=== PATIENT | female | born 1995 | race Caucasian/White ===

== ENCOUNTER 2017-08-16 10:42 | Emergency (ER) | payer BC ==
[2017-08-16] MEDS ORDERED: TYLENOL 325 MG PO ONE (11:38)
--- NOTE | 2017-08-16 11:42 | ERPHSYRPT ---
- History of Present Illness Time Seen by Provider: 08/16/17 11:30 Source: patient, family (mother) Patient Subjective Stated Complaint: pt reports being dx with the flu yeterday being told that if she wasn't better today to come to ed-pt reports she is not feeling better-body aches all over-unsure of fever-sinus pressure with no drainage-diarrhea x 2 Triage Nursing Assessment: pt pink warm and [id number] anxious-resp easy and nonlabored with no difficulty breathing-no cough noted during triage Physician History: CC: flu Hx: 21 y/o patient of JACK Bah. She has rhinorrhea, cough, fever, chills, myalgias. She tested positive for flu A yesterday at office and started tamiflu. Was told to come to ER if not better by today. No new or worsened symptoms. She had prior depo provera and has amenorrhea. Timing/Duration: day(s) (2) Cough Quality/Degree: moderate, dry cough Allergies/Adverse Reactions: No Known Drug Allergies Allergy (Unverified 08/16/17 11:10) Home Medications: Oseltamivir Phosphate 75 mg PO DAILY 08/16/17 [History] Hx Tetanus, Diphtheria Vaccination/Date Given: Yes Hx Influenza Vaccination/Date Given: Yes Hx Pneumococcal Vaccination/Date Given: No Immunizations Up to Date: Yes - Review of Systems Constitutional: Fever, Chills, Malaise Eyes: No Symptoms Ears, Nose, & Throat: Nose Congestion, Throat Pain Respiratory: Cough Abdominal/Gastrointestinal: Nausea, Diarrhea Genitourinary Symptoms: No Dysuria Musculoskeletal: Myalgias Skin: No Rash Neurological: Headache All Other Systems: Reviewed and Negative - Past Medical History Pertinent Past Medical History: No - Past Surgical History Past Surgical History: Yes Other Surgical History: facial - Social History Smoking Status: Never smoker Exposure to second hand smoke: No Drug Use: none Patient Lives Alone: No - Female History Hx Last Menstrual Period: last month Hx Now: No - Nursing Vital Signs Nursing Vital Signs: Initial Vital Signs Temperature 99.2 F 08/16/17 11:06 Pulse Rate 88 08/16/17 11:06 Respiratory Rate 18 08/16/17 11:06 Blood Pressure 121/86 08/16/17 11:06 O2 Sat by Pulse Oximetry 98 08/16/17 11:06 Pain Scale Pain Intensity 8 - Physical Exam General Appearance: alert Eye Exam: PERRL/EOMI Ears, Nose, Throat Exam: normal ENT inspection, moist mucous membranes Neck Exam: normal inspection, non-tender, supple, No meningismus Respiratory Exam: normal breath sounds, lungs clear, No respiratory distress Cardiovascular Exam: regular rate/rhythm Gastrointestinal/Abdomen Exam: soft, No tenderness, No distention Back Exam: normal inspection Extremity Exam: normal inspection, normal range of motion Neurologic Exam: alert, oriented x 3, cooperative, 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, sensation nml, No motor deficits Skin Exam: warm, dry, No rash SpO2 Interpretation: normal SpO2: 98 Oxygen Delivery: Room Air - Course Nursing assessment & vital signs reviewed: Yes Ordered Tests: Active Orders 24 hr Category Date Time Status Clean Catch Urine Specimen STAT Care 08/16/17 11:38 Active HCG,QUALITATIVE URINE Stat Lab 08/16/17 12:00 Completed UA W/RFX UR CULTURE Stat Lab 08/16/17 11:39 Completed Medication Summary Discontinued Medications Generic Name Dose Route Start Last Admin Trade Name Imelda PRN Reason Stop Dose Admin Acetaminophen 650 mg 08/16/17 11:38 08/16/17 11:45 Tylenol 325 Mg PO 08/16/17 11:39 650 mg STAT ONE Administration Acetaminophen Confirm 08/16/17 11:43 Tylenol 325 Mg Administered 08/16/17 11:44 Dose 650 mg .ROUTE .[facility] ONE Lab/Rad Data: Laboratory Results 08/16/17 08/16/17 Range/Units 12:00 11:39 Ur Collection Type CLEAN CATCH Urine Color YELLOW (YELLOW) Urine Appearance CLEAR (CLEAR) Urine pH 5.0 (5-6) Ur Specific [place] 1.015 (1.005-1.025) Urine Protein NEGATIVE (Negative) Urine Ketones NEGATIVE (NEGATIVE) Urine Blood NEGATIVE (0-5) Kervin/ul Urine Nitrite NEGATIVE (NEGATIVE) Urine Bilirubin NEGATIVE (NEGATIVE) Urine Urobilinogen NORMAL (0-1) mg/dL Ur Leukocyte Esterase NEGATIVE (NEGATIVE) Urine Culture Reflexed NO (NO) Urine Glucose NEGATIVE (NEGATIVE) mg/dL Urine HCG, Qual NEGATIVE (Negative) Specimen Received 08-16-17 1200 - Progress Progress Note: 08/16/17 11:42 Lungs clear. She declines cxr. Will check ua, APAP, encourage fluids and symptom Rx. 08/16/17 12:25 UA negative. HCG negative. Symptoms Rx encouraged. Rx albuterol MDI. RT gave spacer. Counseled pt/family regarding: lab results, diagnosis, need for follow-up - Departure Time of Disposition: 12:26 Departure Disposition: Home Clinical Impression: Influenza A Condition: Stable Critical Care Time: No Referrals: KYLE ANDREWS [Primary Care Provider] - Instructions: Cough, Adult (DC), Flu, Adult (DC) Additional Instructions: UPPER RESPIRATORY INFECTIONS 1. The signs and symptoms of a cold may last up to 10 days. These illnesses are due to viruses which are not treatable with antibiotics. 2. The following suggestions can aid in recovery and to minimize symptoms: A. Increase fluid intake. B. Acetaminophen or Ibuprofen as directed. C. Avoid smoking environments as this will increase the risk of developing pneumonia. D. For children, may use a cool mist vaporizer in the child's room. 3. Contact your Family Physician if you note: A. Persistent fever >103 for more than 3 days B. Breathing difficulty C. Productive cough of yellow/green sputum D. Illness greater than 7 days E. Persistent vomiting F. Stiff neck Rx albuterol MDI. Prescriptions: Albuterol Sulfate [Albuterol Sulfate Hfa] 2 puff IH Q4-6HPRN PRN #1 [email or web address] PRN Reason: cough or wheeze
[2017-08-16] MEDS ORDERED: TYLENOL 325 MG ONE (11:43)
[2017-08-16 12:08] LABS: Appearance CLEAR (CLEAR); Bilirubin NEGATIVE (NEGATIVE); Blood NEGATIVE Ery/ul (0-5); Glucose NEGATIVE (NEGATIVE); Ketones NEGATIVE (NEGATIVE); Leukocyte Esterase NEGATIVE (NEGATIVE); Nitrite NEGATIVE (NEGATIVE); Protein,Urine Dip NEGATIVE (Negative); Specific Gravity 1.015 (1.005-1.025); Urobilinogen NORMAL mg/dL (0-1)
[2017-08-16 12:36] VITALS: BP 118/64; PULSE 94; O2SAT 97
== END 2017-08-16 12:35 | disposition home or self-care (01) ==
LOC: ED 10:42
DX: J09.X2 Influenza due to identified novel influenza A virus with other respiratory manifestations (principal)
CPT/HCPCS: 81002; 84703; 99283; A9270-GY

== ENCOUNTER 2021-02-11 09:47 | Observation (INO) | payer OTHER ==
[2021-02-11 11:34] VITALS: BP 121/73; PULSE 84; O2SAT 98
== END 2021-02-11 12:55 | disposition home or self-care (01) ==
LOC: OB 09:47
PROVIDERS: ADMIT Obstetrics & Gynecology; ATTEND Obstetrics & Gynecology
DX: Z34.83 Encounter for supervision of other normal pregnancy, third trimester (principal); Z3A.36 36 weeks gestation of pregnancy
CPT/HCPCS: 87086; G0378

== ENCOUNTER 2021-02-18 12:11 | Inpatient (IN) | payer OTHER ==
[2021-02-18] MEDS ORDERED: Zofran 4 MG/2 ML VIAL IV PRN (16:17)
[2021-02-18] MEDS ORDERED: Ephedrine Sulfate 50 MG/ML IV PRN (16:17)
[2021-02-18] MEDS ORDERED: XYLOCAINE 1% HCL 20 ML MDV IJ PRN (16:17)
[2021-02-18] MEDS ORDERED: TYLENOL EXTRA STRENGTH 500 MG PO PRN (16:17)
[2021-02-18] MEDS ORDERED: Lactated Ringers 1,000 ML IV ONE (16:17)
[2021-02-18] MEDS ORDERED: OB EPIDURAL NAROPIN/SUFENTANIL IN NACL EPIDURAL PRN (16:17)
--- NOTE | 2021-02-18 16:26 | XRAY ---
Indication: Vaginal bleeding. Evaluate placenta. Ultrasound biophysical profile study performed. Comparison: None Single intrauterine in cephalic presentation with heart rates 125 BPM. Fundal placenta without abnormal retroplacental fluid. Four-quadrant PELON is 5.3 cm, largest pocket 2.6 cm. 2 points given for amniotic fluid volume. 0 points given for breathing, movements, and tone. Impression: Total biophysical profile score is 2 out of 8.
[2021-02-18 16:56] LABS: Hematocrit 35.4 % (35-47); Hemoglobin 11.2 gm/dl (12.0-16.0); Mean Cell Volume 87.8 fl (78-100); Mean Corpuscular Hemoglobin 27.8 pg (26-32); Mean Corpuscular Hgb Concent. 31.6 g/dl (32-36); Mean Platelet Volume 9.7 fl (7.5-11.0); Platelet Count 220 K/mm3 (150-450); Red Blood Count 4.03 M/mm3 (4.1-5.4); Red Cell Distribution Width 12.6 % (11.5-14.0); White Blood Count 19.4 K/mm3 (4.0-10.5)
[2021-02-18 16:59] LABS: INR 0.99 (0.8-3.0); PROTIME 11.7 SECONDS (9.4-12.5)
[2021-02-18 17:02] LABS: PTT 25.7 SECONDS (25.1-36.5)
[2021-02-18 17:22] LABS: BAND 11 % (0.0-2.0); Lymphocytes 4 % (24-44); Monocyte 4 % (0.0-12.0); Neutrophils 81 % (36.0-66.0); Total Cells Counted 100
[2021-02-18 17:23] LABS: ANISOCYTOSIS 1+; Macrocytosis 1+; Platelet Estimate NORMAL (NORMAL)
[2021-02-18 17:24] LABS: Absolute Neutrophil Ct (ANC) 17.81 (1.4-6.9)
[2021-02-18 17:43] LABS: ABO TYPING B; Antibody Screen NEGATIVE (NEGATIVE); RH TYPING POSITIVE
[2021-02-18] MEDS: Lactated Ringers 1,000 ML IV SCH (17:49)
[2021-02-18] MEDS: PITOCIN 30 UNITS/ LR 500 ML 30 UNITS/500 ML IV.SOLN. IV SCH (18:07)
[2021-02-18] MEDS ORDERED: KEFZOL 1 GM ONE (19:07)
[2021-02-18] MEDS ORDERED: XYLOCAINE 2%/Epi 1:200000 20ML VIAL MPF ONE (19:07)
[2021-02-18] MEDS ORDERED: SUBLIMAZE 250 MCG/5 ML ONE (19:13)
[2021-02-18] MEDS ORDERED: Pitocin 10 UNITS/ML ONE ×2 (19:17→19:18)
[2021-02-18] MEDS ORDERED: Astramorph-Pf 5 MG/10 ML ONE (19:17)
[2021-02-18] MEDS ORDERED: NORCO 5/325 MG PO PRN (19:25)
[2021-02-18] MEDS ORDERED: CORTISONE 1% CREAM TP PRN (19:25)
[2021-02-18] MEDS ORDERED: Dulcolax 10 MG SUPP PR PRN (19:25)
[2021-02-18] MEDS ORDERED: LANSINOH 40 GM TOP PRN (19:25)
[2021-02-18] MEDS ORDERED: Anucort-HC SUPPOSITORY PR PRN (19:25)
[2021-02-18] MEDS ORDERED: Ambien 10 MG PO PRN (19:25)
[2021-02-18] MEDS ORDERED: TUCKS TP PRN (19:25)
[2021-02-18] MEDS ORDERED: Mylicon 80MG PO PRN (19:25)
[2021-02-18] MEDS ORDERED: TRANEXAMIC ACID 1000 MG/10 ML ONE (19:26)
[2021-02-18] MEDS ORDERED: Sodium Chloride 0.9% 100 ML BAG 100 ML ONE (19:26)
[2021-02-18] MEDS ORDERED: Marcaine 0.5%/Epinephrine 10 ML ONE (19:35)
[2021-02-18] MEDS ORDERED: Naropin 0.5% 30 ML VIAL ONE (19:35)
[2021-02-18] MEDS ORDERED: EPINEPHRINE 1MG/ML AMP ONE (19:35)
[2021-02-18] MEDS ORDERED: DEMEROL 50 MG ONE (19:48)
[2021-02-18] MEDS ORDERED: HOLD NARCOTIC ANALGESICS AND SEDATIVES X24 HR MC PRN (20:00)
[2021-02-18] MEDS ORDERED: Narcan 0.4 MG/ML IV PRN (20:00)
[2021-02-18] MEDS ORDERED: PERCOCET TABLET 5/325MG PO PRN (20:00)
[2021-02-18] MEDS ORDERED: Nubain 10 MG/ML IV PRN (20:00)
[2021-02-18] MEDS ORDERED: MORPHINE SULFATE 2 MG INJ IV PRN (20:00)
[2021-02-18] MEDS ORDERED: BENADRYL 50 MG/ML IV PRN (20:00)
[2021-02-18] MEDS ORDERED: DEMEROL 50 MG IV PRN (20:00)
[2021-02-18] MEDS ORDERED: CLARITIN 10 MG PO PRN (20:00)
[2021-02-18] MEDS ORDERED: Zofran 4 MG/2 ML VIAL ONE (20:01)
[2021-02-18] MEDS: Dextrose 5%-Lr IV Solution 1000 ML 1,000 ML IV SCH (20:45)
[2021-02-18] MEDS ORDERED: Dermoplast Spray TP PRN (21:00)
--- NOTE | 2021-02-18 22:18 | XRAY ---
Indication: Rule out retained surgical foreign body/instrument following section. Comparison: None KUB nonacute and nonobstructed. No radiopaque foreign body. Osseous structures intact. Comment: Preliminary interpretation made by [facility]. No critical discrepancy.
[2021-02-18] MEDS ORDERED: Adacel Vial IM ONE (23:28)
[2021-02-19] MEDS: Dextrose 5%-Lr IV Solution 1000 ML 1,000 ML IV SCH ×2 (04:24→22:36)
[2021-02-19 06:14] LABS: Hemoglobin 9.1 gm/dl (12.0-16.0); Mean Cell Volume 88.1 fl (78-100); Mean Corpuscular Hemoglobin 27.7 pg (26-32); Mean Corpuscular Hgb Concent. 31.4 g/dl (32-36); Mean Platelet Volume 9.7 fl (7.5-11.0); Platelet Count 202 K/mm3 (150-450); Red Blood Count 3.29 M/mm3 (4.1-5.4); Red Cell Distribution Width 12.7 % (11.5-14.0); White Blood Count 14.8 K/mm3 (4.0-10.5)
[2021-02-19 07:31] LABS: Lymphocytes 16 % (24-44); Monocyte 5 % (0.0-12.0); Neutrophils 79 % (36.0-66.0); Total Cells Counted 100
[2021-02-19 07:32] LABS: Platelet Estimate NORMAL (NORMAL)
[2021-02-19] MEDS: Colace 100 MG PO SCH ×2 (08:58→21:44)
[2021-02-19] MEDS: FERREX 150 PO SCH (08:58)
--- NOTE | 2021-02-19 10:51 | PCM.NOTE ---
Date and Time: 02/19/21 1049 Subjective Assessment: POD 1 SP CSECTION PT RESTING IN BED AND DOING WELL. VSS AFEBRILE ABD; SOFT INCISION C/D/INTACT UTERUS; FIRM LOCHIA; MILD HGB; 9 A/P SP CSECTION POD 1 ANTICIPATE DISCHARGE TOMORROW OBJECTIVE DATA Vital Signs: Vital Signs - 24 hr Temp Pulse Resp BP BP BP Pulse Ox 02/19/21 09:05 98.2 F 94 H 18 103/63 99 02/19/21 08:00 98.2 F 18 99 02/19/21 06:56 98 02/19/21 05:57 98 02/19/21 05:17 98 02/19/21 04:00 95 02/19/21 02:58 95 02/19/21 02:00 98.8 F 100 H 111/61 97 02/19/21 01:00 98 02/19/21 00:00 98 02/18/21 23:30 110 H 18 95/54 98 02/18/21 23:00 98 02/18/21 22:30 114 H 18 95/50 98 02/18/21 22:00 98 02/18/21 21:15 117 H 103/55 100 02/18/21 21:00 98.8 F 123 H 103/58 100 02/18/21 18:45 88 18 110/74 97 02/18/21 18:30 112 H 18 101/65 96 02/18/21 18:15 124 H 22 105/65 02/18/21 18:00 117 H 20 101/58 02/18/21 16:40 112 H 20 02/18/21 16:19 99.3 F 18 112/70 100 02/18/21 14:28 112 H 20 118/74 02/18/21 12:43 112 H 20 118/74 Pain Assessment - Last Documented Pain Intensity [Anterior] 0 Pain Intensity 2 Intake and Output: Intake & Output 02/16/21 02/17/21 02/18/21 02/19/21 11:59 11:59 11:59 11:59 Intake Total 6092 Output Total 4250 Balance 1842 Weight 72.575 kg Lab Results: Lab Results-Last 24 Hours 02/18/21 02/18/21 02/18/21 Range/Units 16:40 16:40 16:40 WBC 19.4 H (4.0-10.5) K/mm3 RBC 4.03 L (4.1-5.4) M/mm3 Hgb 11.2 L (12.0-16.0) gm/dl Hct 35.4 (35-47) % MCV 87.8 (78-100) fl MCH 27.8 (26-32) pg MCHC 31.6 L (32-36) g/dl RDW 12.6 (11.5-14.0) % Plt Count 220 (150-450) K/mm3 MPV 9.7 (7.5-11.0) fl Absolute Granulocytes 17.81 H (1.4-6.9) Segmented Neutrophils 81 H (36.0-66.0) % Band Neutrophils 11 H (0.0-2.0) % Lymphocytes (Manual) 4 L (24-44) % Monocytes (Manual) 4 (0.0-12.0) % Platelet Estimate NORMAL (NORMAL) RBC Morphology ABNORMAL Anisocytosis 1+ Macrocytosis 1+ PT 11.7 (9.4-12.5) SECONDS INR 0.99 (0.8-3.0) APTT 25.7 (25.1-36.5) SECONDS ABO Group B Rh Factor POSITIVE Antibody Screen NEGATIVE (NEGATIVE) 02/19/21 Range/Units 05:25 WBC 14.8 H (4.0-10.5) K/mm3 RBC 3.29 L (4.1-5.4) M/mm3 Hgb 9.1 L (12.0-16.0) gm/dl Hct 29.0 L (35-47) % MCV 88.1 (78-100) fl MCH 27.7 (26-32) pg MCHC 31.4 L (32-36) g/dl RDW 12.7 (11.5-14.0) % Plt Count 202 (150-450) K/mm3 MPV 9.7 (7.5-11.0) fl Absolute Granulocytes (1.4-6.9) Segmented Neutrophils 79 H (36.0-66.0) % Band Neutrophils (0.0-2.0) % Lymphocytes (Manual) 16 L (24-44) % Monocytes (Manual) 5 (0.0-12.0) % Platelet Estimate NORMAL (NORMAL) RBC Morphology NORMAL Anisocytosis Macrocytosis PT (9.4-12.5) SECONDS INR (0.8-3.0) APTT (25.1-36.5) SECONDS ABO Group Rh Factor Antibody Screen (NEGATIVE) Radiology Exams: Radiology Procedures Category Date Time Status KUB Routine Exams 02/18/21 19:53 Completed OB BIOPHYSICAL W/O NON STRESS [US] Stat Exams 02/18/21 15:56 Completed Assessment/Plan (1) delivery delivered Current Visit: Yes Status: Acute Code(s): O82 - ENCOUNTER FOR DELIVERY WITHOUT INDICATION
[2021-02-19] MEDS: MOTRIN 400 MG PO PRN ×2 (15:13→21:44)
[2021-02-19] MEDS: Lactated Ringers 1,000 ML IV SCH (22:36)
[2021-02-19] MEDS: PITOCIN 30 UNITS/ LR 500 ML 30 UNITS/500 ML IV.SOLN. IV SCH (22:36)
[2021-02-20] MEDS ORDERED: NORCO 5/325 MG PO PRN (02:41)
[2021-02-20] MEDS ORDERED: NORCO 5/325 MG ONE (02:42)
[2021-02-20] MEDS: MOTRIN 400 MG PO PRN ×2 (06:15→14:40)
[2021-02-20] MEDS: FERREX 150 PO SCH (08:42)
[2021-02-20] MEDS: Colace 100 MG PO SCH (08:42)
--- NOTE | 2021-02-20 10:12 | PCM.NOTE ---
Date and Time: 02/20/21 1009 Subjective Assessment: POD 2 SP CSECTION PT RESTING IN BED AND DONG WELL AMBULATING AND TOLERATING DIET. DOES CO COLD SORES SHES DEVELOPED AND STATES HAVING HAD PREVIOUSLY. VSS AFEBRILE ABD; SOFT INCISION C/D/INTACT UTERUS; FIRM LOCHIA; MILD A/P SP CSECTION POD 2 HERPES LABIALIS DC HOME TODAY FU OFFICE 2 WKS WILL GIVE FIRST DOSE OF VALACYCLOVIR 2000MG AT THIS TIME OBJECTIVE DATA Vital Signs: Vital Signs - 24 hr Temp Pulse Resp BP Pulse Ox 02/20/21 08:00 97.8 F 68 18 119/57 02/20/21 02:00 97.5 F 71 18 113/74 97 02/19/21 20:00 98.2 F 80 19 111/67 98 02/19/21 17:00 98.4 F 102 H 18 106/61 98 02/19/21 16:00 98 02/19/21 15:00 98 02/19/21 14:00 98 02/19/21 13:00 99 02/19/21 12:00 99 02/19/21 11:00 99 Pain Assessment - Last Documented Pain Intensity [Anterior] 5 Pain Intensity 5 Pain Scale Used 0-10 Pain Scale Intake and Output: Intake & Output 02/17/21 02/18/21 02/19/21 02/20/21 11:59 11:59 11:59 11:59 Intake Total 6092 1460 Output Total 4950 2700 Balance 1142 -1240 Weight 72.575 kg Radiology Exams: Radiology Procedures Category Date Time Status KUB Routine Exams 02/18/21 19:53 Completed OB BIOPHYSICAL W/O NON STRESS [US] Stat Exams 02/18/21 15:56 Completed Assessment/Plan (1) delivery delivered Current Visit: Yes Status: Acute Code(s): O82 - ENCOUNTER FOR DELIVERY WITHOUT INDICATION (2) S/P repeat low transverse Current Visit: Yes Status: Acute Code(s): Z98.891 - HISTORY OF UTERINE SCAR FROM PREVIOUS SURGERY
--- NOTE | 2021-02-20 10:19 | PCM.DS ---
Discharge Summary Date of Admission: 02/18/21 16:00 Admitting Physician: JINA SHANE DO Consults: Consults on Case 02/18/21 19:27 Notify Physician ROUTINE Primary Care Provider: KYLE SMITH Allergies Allergies Penicillins Allergy (Mild, Verified 02/18/21 12:26) Itching Hospital Summary - Hospital Course Hospital Course: PT ADMITTED ON FEBRUARY 18 FOR SUSPECTED SROM AND BEING IN LABOR AND AFTER BEING IN LABOR WITH HX OF PREVIOUS CSECTION, PT DESIRES HOWEVER AFTER LABORING AND BECOMING 4CM PT WAS NOTED HAVING A PROLONGED BRADYCARDIA FOR WHICH SHE SUBSEQUENTLY UNDERWENT REPEAT CSECTION AND WAS DONE SO WITHOUT COMLPLICATION. 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 VALTREX STARTED AT THIS TIME AND WAS TOLD TO ABSTAIN FROM KISSING BABY. PTS INCISION C/D/INTACT WAS ADVISED TO FU IN 2 WKS FOR POST OP EVALUATION. ALL QUESTIONS ANSWERED TO HER SATISFACTION. PT GIVEN NORCO FOR PAIN MANAGMENT WELL RX FOR VALTREX GIVEN. - Vitals & Intake/Output Vital Signs: Vital Signs Temperature 97.8 F 02/20/21 08:00 Pulse Rate 68 02/20/21 08:00 Respiratory Rate 18 02/20/21 08:00 Blood Pressure 119/57 02/20/21 08:00 O2 Sat by Pulse Oximetry 97 02/20/21 02:00 Intake & Output: Intake & Output 02/17/21 02/18/21 02/19/21 02/20/21 11:59 11:59 11:59 11:59 Intake Total 6092 1460 Output Total 1800 2700 Balance 1142 -1240 Weight 72.575 kg - Lab Result Diagrams: 02/19/21 05:25 - Radiology Exams Ordered Rad Exams-Entire Visit: Radiology Procedures Category Date Time Status KUB Routine Exams 02/18/21 19:53 Completed OB BIOPHYSICAL W/O NON STRESS [US] Stat Exams 02/18/21 15:56 Completed - Procedures and Test Procedures and Tests throughout Hospitalization: Therapy Orders & Screens 02/18/21 19:00 Standby ROUTINE Comment: Diagnosis: labor Final Diagnosis/Problem List - Final Discharge Diagnosis/Problem (1) delivery delivered Current Visit: Yes Status: Acute Code(s): O82 - ENCOUNTER FOR DELIVERY WITHOUT INDICATION (2) S/P repeat low transverse Current Visit: Yes Status: Acute Code(s): Z98.891 - HISTORY OF UTERINE SCAR FROM PREVIOUS SURGERY - Discharge Disposition: Home, Self-Care Condition: Stable Prescriptions: New Hydrocodone/Acetaminophen [Hydrocodone-Acetamin 5-325 mg] 1 tab PO Q6HPRN PRN #30 tablet MDD 4 PRN Reason: Pain Valacyclovir HCl [Valacyclovir] 1,000 mg PO HS 1 Days #2 tablet No Action Vits W-Ca,Fe,FA(<1Mg) [] 1 each PO DAILY Follow up with: KYLE SMITH [Primary Care Provider] - JINA SHANE DO [ACTIVE STAFF] - 2 weeks (keep incision clean and dry no heavy lifting no intercourse for 6 wks)
[2021-02-20] MEDS ORDERED: NON-FORMULARY ITEM PO SCH (11:30)
[2021-02-20 14:56] VITALS: BP 112/63; PULSE 88; O2SAT 98
--- NOTE | 2021-02-21 09:50 | OP ---
SURGERY DATE/TIME: 02/18/20211858 PREOPERATIVE DIAGNOSIS: Intrauterine at 37 plus weeks in labor with previous section x1 for attempted with subsequent prolonged bradycardia. POSTOPERATIVE DIAGNOSIS: Intrauterine at 37 plus weeks in labor with previous section x1 for attempted with subsequent prolonged bradycardia. PROCEDURE: Repeat section, low flap transverse uterine incision, Pfannenstiel skin incision. SURGEON: Kalia Bansal D.O. CREW LEADER: Khushi Germain, surgical clinical reviewer. ANESTHESIA: Epidural. ESTIMATED BLOOD LOSS: 500 cc. COMPLICATIONS: None. INDICATIONS: The risks, benefits, indications and alternatives of the procedure were reviewed with the patient prior to procedure. The patient understood the risk of infection, bleeding, bowel injury, bladder injury, ureteral injury, uterine perforation, pelvic infection, thromboembolic disorder associated with the surgery however desires to have this surgery as a possible means to alleviate her current medical condition. DESCRIPTION OF PROCEDURE AND FINDINGS: At this point the patient is taken to the operating room where her epidural anesthesia was found to adequate. She was then prepared and draped in normal sterile fashion in the dorsal supine position with leftward tilt. A Pfannenstiel skin incision is made with a scalpel and carried through to the underlying layer of the fascia with Bovie. The fascia was then incised in the midline and the incision extended laterally with Greene scissors. The superior aspect of the fascial incision was then grasped Nikki clamps elevated and the underlying rectus muscles dissected off bluntly. Attention is then turned to the inferior aspect of this incision which in similar fashion was grasped, tented up with Nikki clamps and the rectus muscles dissected off bluntly. The rectus muscles were then at the midline and the peritoneum identified, tented up and entered sharply with Metzenbaum scissors. The peritoneal incision was then extended superiorly and inferiorly with good visualization of the bladder. The bladder blade was then inserted and the vesicouterine peritoneum identified, grasped with a pickup and entered sharply with Metzenbaum scissors. This incision was then extended laterally and bladder flap created medially. The bladder blade was then re-inserted and the lower uterine segment incised in transverse fashion with a scalpel. The uterine incision was then extended laterally with bandage scissors. The bladder blade was then removed and the infants head was delivered atraumatically. The nose and mouth were suctioned with bulb suction, the cord clamped and cut. The infant was then handed off to the awaiting nurses. The placenta was then removed from the uterus, exteriorized and cleared of all clots and debris. The uterine incision was repaired with 1-0 chromic in a running locked fashion. At this point hemostasis was obtained. From this point the uterus was then returned to the abdomen and the gutters were cleared of all clots and the peritoneal muscles were closed with 2-0 chromic suture. The fascia was re-approximated with 0 Vicryl in running fashion. The subcutaneous layer was closed with 3-0 Vicryl suture. The skin was closed with absorbable sree called INSORB. The patient tolerated the procedure well. Sponge, lap, needle and instrument counts were correct x2. The patient was then taken to the recovery room in stable condition. The patient delivered a live baby girl at 1915 hours. 's were 8 at 1 minute and 9 at 5 minutes and the delivery weight was 6 pounds 10 ounces.
[2021-02-22 08:29] LABS: HBsAg Screen Negative (Negative)
== END 2021-02-20 18:25 | disposition home or self-care (01) | DRG 788 ==
LOC: MED SURG 12:11 → OB 12:19 → MED SURG 16:00 → OBSVTOIN 16:00
PROVIDERS: ADMIT Obstetrics & Gynecology; ATTEND Obstetrics & Gynecology
PROC: 10D00Z1 Extraction of Products of Conception, Low, Open Approach (ICD-10-PCS; principal; 2021-02-18)
DX: O66.41 Failed attempted vaginal birth after previous cesarean delivery (principal); O76 Abnormality in fetal heart rate and rhythm complicating labor and delivery; Z3A.37 37 weeks gestation of pregnancy; Z37.0 Single live birth; B00.1 Herpesviral vesicular dermatitis
CPT/HCPCS: 36415; 59620; 62322; 64488; 74018; 76819; 76937; 76942; 85025; 85610; 85730; 86850; 86900; 86901; 87340; 90715; 94799; 99140; G0378; J0171; J0690; J2175; J2274; J2405; J2590; J2795; J3010; L0625; A9270-GY

== ENCOUNTER 2023-08-08 16:03 | Emergency (ER) | payer OTHER ==
--- NOTE | 2023-08-08 16:14 | ERPHSYRPT ---
- History of Present Illness Time Seen by Provider: 08/08/23 16:13 Historian: patient, family Exam Limitations: no limitations Physician History: This is a 27-year-old white female patient of nurse practitioner Niurka who presents to the emergency department with a few day history of lower abdominal cramping. Approximately 2 weeks ago, patient took a test and it was positive. This test was an [id number] test. Patient's last menstrual period was on 06/28/2023 per her report. Today, she had intermittent lower abdominal cramping with associated vaginal bleeding. Patient is allergic to penicillin. She takes no medications chronically. She has no chest pain and she denies shortness of breath. Timing/Duration: day(s), intermittent, other (Few days ago. Today, cramping in the lower abdomen is associated with vaginal bleeding) Quality: cramping Abdominal Pain Onset Location: suprapubic Pain Radiation: no radiation Severity of Pain-Max: mild Severity of Pain-Current: mild Modifying Factors: Improves With: nothing Associated Symptoms: other (Vaginal bleeding) Previous symptoms: no prior history, no recent treatment Allergies/Adverse Reactions: Penicillins Allergy (Mild, Verified 08/08/23 16:14) Itching Home Medications: No Reportable Medications [No Reported Medications] 08/08/23 [History] Hx Tetanus, Diphtheria Vaccination/Date Given: Yes Hx Influenza Vaccination/Date Given: Yes Hx Pneumococcal Vaccination/Date Given: No Travel Risk - International Travel Have you traveled outside of the country in past 3 weeks: No - Emerging Infectious Disease Are you exhibiting symptoms associated with any current EIDs: No - Review of Systems Constitutional: No Symptoms Eyes: No Symptoms Ears, Nose, & Throat: No Symptoms Respiratory: No Symptoms Cardiac: No Symptoms Abdominal/Gastrointestinal: Abdominal Pain (Pubic/pelvic cramping) Genitourinary Symptoms: Vaginal Bleeding Musculoskeletal: No Symptoms Skin: No Symptoms Neurological: No Symptoms Psychological: No Symptoms Endocrine: No Symptoms Hematologic/Lymphatic: No Symptoms Immunological/Allergic: No Symptoms All Other Systems: Reviewed and Negative - Past Medical History Pertinent Past Medical History: No - Past Surgical History Past Surgical History: Yes Other Surgical History: facial - Social History Smoking Status: Never smoker Exposure to second hand smoke: No Drug Use: none Patient Lives Alone: No - Nursing Vital Signs Nursing Vital Signs: Initial Vital Signs Pulse Rate 108 H 08/08/23 16:13 Respiratory Rate 20 08/08/23 16:13 Blood Pressure 131/75 08/08/23 16:13 O2 Sat by Pulse Oximetry 100 08/08/23 16:13 Pain Scale Pain Intensity 6 - Physical Exam General Appearance: no apparent distress, alert, anxiety Eye Exam: PERRL/EOMI, eyes nml inspection Ears, Nose, Throat Exam: normal ENT inspection, moist mucous membranes Neck Exam: normal inspection, non-tender, supple, full range of motion Respiratory Exam: normal breath sounds, lungs clear, No chest tenderness, No respiratory distress Cardiovascular Exam: regular rate/rhythm, normal heart sounds, normal peripheral pulses Gastrointestinal/Abdomen Exam: soft, normal bowel sounds, tenderness (Mild suprapubic tenderness), No guarding, No rebound Pelvic Exam: not done Rectal Exam: not done Back Exam: normal inspection, normal range of motion, No CVA tenderness, No vertebral tenderness Extremity Exam: normal inspection, normal range of motion, pelvis stable Neurologic Exam: alert, oriented x 3, cooperative, copper plater II-XII nml as tested, normal mood/affect, nml cerebellar function, nml station & gait, sensation nml Skin Exam: normal color, warm, dry Lymphatic Exam: No adenopathy SpO2 Interpretation: normal O2 Delivery: Room Air - Course Nursing assessment & vital signs reviewed: Yes Ordered Tests: Active Orders 24 hr Category Date Time Status IV Insertion STAT Care 08/08/23 16:34 Active OB <14 WKS 1ST GESTATION [US] Stat Exams 08/08/23 16:33 Completed AMYLASE Stat Lab 08/08/23 17:00 Results CBC W DIFF Stat Lab 08/08/23 17:00 Completed CMP Stat Lab 08/08/23 17:00 Results HCG QUALITATIVE, SERUM Stat Lab 08/08/23 17:00 Completed HCG, Quantitative (Inhouse) Stat Lab 08/08/23 17:00 Results LIPASE Stat Lab 08/08/23 17:00 Results UA W/RFX UR CULTURE Stat Lab 08/08/23 16:38 Completed Lab/Rad Data: Laboratory Result Diagrams 08/08/23 17:00 08/08/23 17:00 Laboratory Results 08/08/23 08/08/23 08/08/23 Range/Units 17:00 17:00 17:00 WBC 7.8 (4.0-10.5) x10^3/uL RBC 4.48 (4.1-5.4) x10^6/uL Hgb 13.1 (12.0-16.0) g/dL Hct 38.9 (35-47) % MCV 86.8 (78-100) fL MCH 29.2 (26-32) pg MCHC 33.7 (32-36) g/dL RDW 12.2 (11.5-14.0) % Plt Count 297 (150-450) x10^3/uL MPV 8.6 (7.5-11.0) fL Gran % 66.3 H (36.0-66.0) % Immature Gran % (Auto) 0.9 H (0.00-0.4) % Nucleat RBC Rel Count 0.0 (0.00-0.1) % Eos # (Auto) 0.05 (0-0.5) x10^3/uL Immature Gran # (Auto) 0.07 H (0.00-0.03) x10^3u/L Absolute Lymphs (auto) 1.94 (1.0-4.6) x10^3/uL Absolute Monos (auto) 0.52 (0.0-1.3) x10^3/uL Absolute Nucleated RBC 0.00 (0.00-0.01) x10^3u/L Lymphocytes % 25.0 (24.0-44.0) % Monocytes % 6.7 (0.0-12.0) % Eosinophils % 0.6 (0.00-5.0) % Basophils % 0.5 (0.0-0.4) % Absolute Granulocytes 5.15 (1.4-6.9) x10^3/uL Basophils # 0.04 (0-0.4) x10^3/uL Sodium 139 (135-145) mmol/L Potassium 4.1 (3.5-5.1) mmol/L Chloride 106 (98-107) mmol/L Carbon Dioxide 23 (22-30) mmol/L Anion Gap 13.9 (5-15) MEQ/L BUN 8 (7-17) mg/dL Creatinine 0.61 (0.52-1.04) mg/dL Estimated GFR 127.2 ML/MIN Glucose 84 (74-106) mg/dL Calcium 9.6 (8.4-10.2) mg/dL Total Bilirubin 0.30 (0.2-1.3) mg/dL AST 20 (14-36) U/L ALT 13 (0-35) U/L Alkaline Phosphatase 68 (38-126) U/L Serum Total Protein 7.8 (6.3-8.2) g/dL Albumin 4.5 (3.5-5.0) g/dL Amylase 90 (30-110) U/L Lipase 157 (23-300) U/L Serum HCG, Qual POSITIVE (NEGATIVE) Beta HCG, Quant Pending Urine Color (Yellow) Urine Appearance (Clear) Urine pH (4.6-8.0) Ur Specific Lynn (1.005-1.030) Urine Protein (Negative) Urine Glucose (UA) (Negative) mg/dL Urine Ketones (Negative) Urine Blood (Negative) Urine Nitrite (Negative) Urine Bilirubin (Negative) Urine Urobilinogen (0.2) mg/dL Ur Leukocyte Esterase (Negative) U Hyaline Cast (Auto) (0-2) /LPF Urine Microscopic RBC (0-5) /HPF Urine Microscopic WBC (0-5) /HPF Ur Epithelial Cells (None Seen) /HPF Urine Bacteria (None Seen) /HPF Urine Culture Reflexed (NO) 08/08/23 Range/Units 16:38 WBC (4.0-10.5) x10^3/uL RBC (4.1-5.4) x10^6/uL Hgb (12.0-16.0) g/dL Hct (35-47) % MCV (78-100) fL MCH (26-32) pg MCHC (32-36) g/dL RDW (11.5-14.0) % Plt Count (150-450) x10^3/uL MPV (7.5-11.0) fL Gran % (36.0-66.0) % Immature Gran % (Auto) (0.00-0.4) % Nucleat RBC Rel Count (0.00-0.1) % Eos # (Auto) (0-0.5) x10^3/uL Immature Gran # (Auto) (0.00-0.03) x10^3u/L Absolute Lymphs (auto) (1.0-4.6) x10^3/uL Absolute Monos (auto) (0.0-1.3) x10^3/uL Absolute Nucleated RBC (0.00-0.01) x10^3u/L Lymphocytes % (24.0-44.0) % Monocytes % (0.0-12.0) % Eosinophils % (0.00-5.0) % Basophils % (0.0-0.4) % Absolute Granulocytes (1.4-6.9) x10^3/uL Basophils # (0-0.4) x10^3/uL Sodium (135-145) mmol/L Potassium (3.5-5.1) mmol/L Chloride (98-107) mmol/L Carbon Dioxide (22-30) mmol/L Anion Gap (5-15) MEQ/L BUN (7-17) mg/dL Creatinine (0.52-1.04) mg/dL Estimated GFR ML/MIN Glucose (74-106) mg/dL Calcium (8.4-10.2) mg/dL Total Bilirubin (0.2-1.3) mg/dL AST (14-36) U/L ALT (0-35) U/L Alkaline Phosphatase (38-126) U/L Serum Total Protein (6.3-8.2) g/dL Albumin (3.5-5.0) g/dL Amylase (30-110) U/L Lipase (23-300) U/L Serum HCG, Qual (NEGATIVE) Beta HCG, Quant Urine Color Yellow (Yellow) Urine Appearance Clear (Clear) Urine pH 6.5 (4.6-8.0) Ur Specific Lynn <=1.005 (1.005-1.030) Urine Protein Negative (Negative) Urine Glucose (UA) Negative (Negative) mg/dL Urine Ketones Negative (Negative) Urine Blood Negative (Negative) Urine Nitrite Negative (Negative) Urine Bilirubin Negative (Negative) Urine Urobilinogen 0.2 (0.2) mg/dL Ur Leukocyte Esterase Negative (Negative) U Hyaline Cast (Auto) NONE SEEN (0-2) /LPF Urine Microscopic RBC 0-2 (0-5) /HPF Urine Microscopic WBC 0-2 (0-5) /HPF Ur Epithelial Cells None Seen (None Seen) /HPF Urine Bacteria None Seen (None Seen) /HPF Urine Culture Reflexed NO (NO) - Progress Progress Note: 08/08/23 16:55 This patient's medical issue is 1 of moderate complexity. The level of complexity and the workup performed is based on review of the patient's past medical history, review the patient's medication list, reviewed patient's drug allergy list, history present illness and physical findings on examination. The workup in this patient includes placement of an intravenous line, quantitative hCG, qualitative serum hCG, urinalysis, CBC, CMP, amylase, lipase and OB less than 14 weeks ultrasound. 08/08/23 17:02 [facility] OB less than 14 weeks [facility] reports that there is fluid in the body of the uterus and debris in the fundus. She reports no evidence for an ectopic . We will await the final radiology report. 08/08/23 17:12 08/08/23 17:17 The final ultrasound report was interpreted by the radiologist. I reviewed the impression. The impression states that there is a low-lying intrauterine cystic mass without pole/heart tones. Hypoechogenicity throughout remaining endometrial cavity. May represent blood products. Rule out spontaneous 08/08/23 17:18 I interpreted the patient's laboratory data results. The only significant finding is the serum qualitative test is positive. The quantitative level is pending. Patient's vital signs are stable. There is no active vaginal bleeding. Her hemoglobin is normal. There is no evidence of urinary tract infection or blood in her urine. 08/08/23 17:59 We have been waiting for the quantitative hCG. At approximately 1740, lab was notified and they stated that it would be 20 minutes before the result is back. They just called again stating that it would be approximately another 20 to 30 minutes. The quantitative hCG level does not have to be back before the patient is discharged. We will call the patient with the value if she would like to be discharged. Counseled pt/family regarding: lab results, diagnosis, need for follow-up, rad results Medical Desision Making - Independent Historian Additional History obtained from: Family - Diagnostic Testing Diagnostic test were ordered, analyzed, and reviewed by me: Yes Radiological Interpretation: Reviewed by me, Teleradiologist Report - Risk of complications Low Risk: Low risk of morbidity from additional dx testing or treatment - Departure Departure Disposition: Home Clinical Impression: Spontaneous miscarriage Condition: Stable Critical Care Time: No Referrals: FRANKLIN MALONEY, JACK [Primary Care Provider] - Follow up/PCP as directed Additional Instructions: Plenty of fluids. Call nurse practitioner Niurka's office tomorrow, 08/09/2023 in the morning to make arrangements for follow-up appointment and/or any further management/intervention they deem necessary. Continue all your medications as prescribed.
[2023-08-08 16:27] VITALS: TEMP 99.6
[2023-08-08 17:01] LABS: Appearance Clear (Clear); Bacteria None Seen /HPF (None Seen); Bilirubin Negative (Negative); Blood Negative (Negative); Epithelial Cells None Seen /HPF (None Seen); Glucose, Urine Negative (Negative); Hyaline Casts NONE SEEN /LPF (0-2); Ketones Negative (Negative); Leukocyte Esterase Negative (Negative); Nitrite Negative (Negative); Ph 6.5 (4.6-8.0); Protein,Urine Dip Negative (Negative); RBC 0-2 /HPF (0-5); Specific Gravity <=1.005 (1.005-1.030); Urobilinogen 0.2 mg/dL (0.2); WBC 0-2 /HPF (0-5)
[2023-08-08 17:06] LABS: Absolute Neutrophil Ct (ANC) 5.15 x10^3/uL (1.4-6.9); BASOPHIL % 0.5 % (0.0-0.4); Basophil (Absolute #) 0.04 x10^3/uL (0-0.4); Eosinophil % 0.6 % (0.00-5.0); Eosinophil (Absolute #) 0.05 x10^3/uL (0-0.5); Hematocrit 38.9 % (35-47); Hemoglobin 13.1 g/dL (12.0-16.0); IMMATURE GRAN # 0.07 x10^3u/L (0.00-0.03); IMMATURE GRAN % 0.9 % (0.00-0.4); Lymphocyte (Absolute #) 1.94 x10^3/uL (1.0-4.6); Mean Cell Volume 86.8 fL (78-100); Mean Corpuscular Hemoglobin 29.2 pg (26-32); Mean Corpuscular Hgb Concent. 33.7 g/dL (32-36); Mean Platelet Volume 8.6 fL (7.5-11.0); Monocyte (Absolute #) 0.52 x10^3/uL (0.0-1.3); Monocytes % 6.7 % (0.0-12.0); Neutrophil % 66.3 % (36.0-66.0); Platelet Count 297 x10^3/uL (150-450); Red Blood Count 4.48 x10^6/uL (4.1-5.4); Red Cell Distribution Width 12.2 % (11.5-14.0); White Blood Count 7.8 x10^3/uL (4.0-10.5)
[2023-08-08 17:09] LABS: ADD URINE CULTURE? NO (NO)
--- NOTE | 2023-08-08 17:14 | XRAY ---
Indication: Vaginal bleeding and cramping. Comparison: None for this . Transabdominal and transvaginal early OB ultrasound demonstrates low-lying intrauterine cystic mass without pole/heart tones. Remaining endometrial cavity near fundus demonstrates hypoechogenicity, possible blood products. Cervix is closed. Left and right ovary sonographically unremarkable. No suspicious adnexal mass or free fluid. Impression: Low-lying intrauterine cystic mass without pole/heart tones. Hypoechogenicity throughout remaining endometrial cavity may represent blood products. Rule out impending .
[2023-08-08 17:15] LABS: HCG SERUM TEST POSITIVE (NEGATIVE)
[2023-08-08 17:32] VITALS: RESP 20
[2023-08-08 17:36] LABS: ALBUMIN 4.5 g/dL (3.5-5.0); ANION GAP 13.9 MEQ/L (5-15); BILIRUBIN,TOTAL 0.3 mg/dL (0.2-1.3); Calcium 9.6 mg/dL (8.4-10.2); Creatinine 1 0.61 mg/dL (0.52-1.04); EST GLOMERULAR FILTRATION RATE 127.2 ML/MIN; Potassium 4.1 mmol/L (3.5-5.1); Total Protein 7.8 g/dL (6.3-8.2)
[2023-08-08 18:16] VITALS: BP 99/71; PULSE 86; O2SAT 98
== END 2023-08-08 18:28 | disposition home or self-care (01) ==
LOC: ED 16:03
DX: O03.9 Complete or unspecified spontaneous abortion without complication (principal); R10.30 Lower abdominal pain, unspecified
CPT/HCPCS: 36415; 76801; 80053; 81001; 82150; 83690; 84702; 84703; 85025; 99283